=== PATIENT | female | born 1990 | race African-American/Black ===

== ENCOUNTER 2017-02-18 13:49 | Emergency (ER) | payer SELFPAY ==
[~2017-02-18] VITALS: Ht 177.8 cm; Wt 59.0 kg
[2017-02-18 14:04] VITALS: BP 106/69
== END 2017-02-18 15:48 | disposition home or self-care (01) ==
LOC: ER 15:18
DX: J02.9 Acute pharyngitis, unspecified (principal)
CPT/HCPCS: 99283